=== PATIENT | female | born 1975 | race Caucasian/White ===

== ENCOUNTER 2019-05-02 11:50 | Emergency (ER) | payer OTHER, MEDICAID ==
[2019-05-02] MEDS: HYDROCODONE/APAP (5/325) TAB PO (12:09)
[2019-05-02] MEDS: ONDANSETRON (ODT) 4 MG TAB ODT (12:10)
== END 2019-05-02 15:12 | disposition home or self-care (01) ==
LOC: FTE 11:50
DX: S42.401A Unspecified fracture of lower end of right humerus, initial encounter for closed fracture (principal); W18.30XA Fall on same level, unspecified, initial encounter; Y92.481 Parking lot as the place of occurrence of the external cause
CPT/HCPCS: 29105; 73030-RT; 73080-RT; 73200; 81025; 99284-25